=== PATIENT | female | born 1990 | race Caucasian/White ===

== ENCOUNTER 2020-02-21 01:10 | Outpatient (CLI) | payer OTHER ==
[2020-02-21 02:14] LABS: APPEARANCE,URINE SLIGHTLY-CLOUDY; BILIRUBIN,URINE NEGATIVE (NEGATIVE); COLOR,URINE YELLOW; GLUCOSE, URINE NEGATIVE (NEGATIVE); KETONES,URINE NEGATIVE (NEGATIVE); LEUKOCYTE ESTERASE,URINE SMALL (NEGATIVE); NITRITE,URINE NEGATIVE (NEGATIVE); PROTEIN,URINE NEGATIVE (NEGATIVE); URINE SPECIFIC GRAVITY 1.005; UROBILINOGEN,URINE NEGATIVE mg/dL (<2.0)
[2020-02-21 02:33] LABS: URINE AMPHETAMINES SCREEN NEGATIVE; URINE BARBITURATES SCREEN NEGATIVE; URINE BENZODIAZEPINES SCREEN NEGATIVE; URINE COCAINE SCREEN NEGATIVE; URINE MARIJUANA (THC) SCREEN NEGATIVE; URINE METHADONE SCREEN NEGATIVE; URINE PHENCYCLIDINE SCREEN NEGATIVE
[2020-02-21] MEDS ORDERED: HYDROXYZINE PAMOATE 50 MG CAPSULE ONE (03:27)
--- NOTE | 2020-02-21 03:40 | Non Stress Test Report ---
Non Stress Test Datetime Report Generated by CPN: 02/21/2020 03:39 DEMOGRAPHIC EGA NST: 38.3 INDICATION Indication for Study (NST) Other: lc > 32 weeks VITAL SIGNS Temperature - NST: 98.0 Pulse - NST: 77 RESP - NST: 17 NBPSYS NST: 108 NBPDIA NST: 62 MONITORING Monitor Explained: Monitor Explained; Test Explained; Patient Verbalized Understanding Time on Monitor: 02/21/2020 02:07 Time off Monitor: 02/21/2020 02:36 NST Duration: 29 NST INTERVENTIONS NST Interventions: PO Hydration; Reposition Patient Physician Notified NST: dr evi BABY A: [id number] BABY A Movement : Present Contraction Frequency : 2.5-4.5 FHR Baseline : 130 Accelerations : 15X15 Decelerations : None Variability : Moderate 6-25bpm NST Review: Meets Criteria for Reactive NST NST Review and Verified By : Tunde Santoyo RN NST Results: Reactive NST REPORT Report Trigger: Send Report
[2020-02-21] MEDS: HYDROXYZINE PAMOATE 50 MG CAPSULE PO ONE (03:55)
== END 2020-02-21 03:40 | disposition home or self-care (01) ==
LOC: LC 01:10
PROVIDERS: ATTEND Obstetrics & Gynecology
DX: O60.03 Preterm labor without delivery, third trimester (principal); Z3A.38 38 weeks gestation of pregnancy
CPT/HCPCS: 80307; 81005

== ENCOUNTER 2020-02-26 06:51 | Inpatient (IN) | payer OTHER ==
[2020-02-26] MEDS: RINGERS SOLUTION,LACTATED 1,000 ML IV PRN ×2 (07:40→11:20)
[2020-02-26 08:51] LABS: APPEARANCE,URINE SLIGHTLY-CLOUDY; BILIRUBIN,URINE NEGATIVE (NEGATIVE); COLOR,URINE YELLOW; GLUCOSE, URINE NEGATIVE (NEGATIVE); KETONES,URINE NEGATIVE (NEGATIVE); LEUKOCYTE ESTERASE,URINE TRACE (NEGATIVE); NITRITE,URINE NEGATIVE (NEGATIVE); PROTEIN,URINE NEGATIVE (NEGATIVE); URINE SPECIFIC GRAVITY 1.006; UROBILINOGEN,URINE NEGATIVE mg/dL (<2.0)
[2020-02-26 09:16] LABS: URINE AMPHETAMINES SCREEN NEGATIVE; URINE BARBITURATES SCREEN NEGATIVE; URINE BENZODIAZEPINES SCREEN NEGATIVE; URINE COCAINE SCREEN NEGATIVE; URINE MARIJUANA (THC) SCREEN NEGATIVE; URINE METHADONE SCREEN NEGATIVE; URINE PHENCYCLIDINE SCREEN NEGATIVE
[2020-02-26] MEDS ORDERED: PENICILLIN G-K 5 MILLION UNIT VIAL IV ONE (10:03)
[2020-02-26] MEDS ORDERED: PENICILLIN G-K 5 MILLION UNIT VIAL ONE (10:04)
[2020-02-26 10:27] LABS: ABSOLUTE EOSINOPHILS # (AUTO) 0.2 10^3/uL (0.0-0.6); ABSOLUTE LYMPHOCYTES (AUTO) 2.2 10^3/uL (0.5-4.7); ABSOLUTE MONOCYTES (AUTO) 0.7 10^3/uL (0.1-1.4); ABSOLUTE NEUT (AUTO) 10.2 10^3/uL (1.7-8.2); BASOPHILS % (AUTO) 0.4 % (0-2); EOSINOPHILS % (AUTO) 1.1 % (0-6); HEMATOCRIT 34.5 % (36.0-47.0); LYMPHOCYTES % (AUTO) 16.8 % (13-45); MEAN CORPUSCULAR HEMOGLOBIN 32.3 pg (27.0-33.4); MEAN CORPUSCULAR HGB CONC 34.9 g/dL (32.0-36.0); MEAN CORPUSCULAR VOLUME 93 fl (80-97); MONOCYTES % (AUTO) 5.4 % (3-13); PLATELET COUNT 242 10^3/uL (150-450); RED BLOOD COUNT 3.73 10^6/uL (3.72-5.28); RED CELL DISTRIBUTION WIDTH 13.1 % (11.5-14.0); SEGMENTED NEUTROPHILS % (AUTO) 76.3 % (42-78); TOTAL CELLS COUNTED % (AUTO) 100 %; WHITE BLOOD COUNT 13.3 10^3/uL (4.0-10.5)
--- NOTE | 2020-02-26 11:24 | Admission Physical ---
Datetime Report Generated by CPN: 02/26/2020 11:24 CURRENT ADMISSION Chief Complaint: Uterine Contractions Indication for Induction: Not Applicable Admit Impression : Term, Intrauterine ; Active Labor Admit Plan: Admit to Unit; Initiate Labor Protocol ALLERGIES Medication Allergies: Yes Medication Allergies: meperidine (02/26/2020) OBSTETRICAL HISTORY EDC: 03/03/2020 00:00 : 2 Para: 1 Livin Gestational Diabetes: Yes Rh Sensitization: No Incompetent Cervix: No ORIANA: No Infertility: No ART Treatment: No Uterine Anomaly: No IUGR: No Hx Previous C/S: No Macrosomia: No Hx Loss/Stillborn: No PIH: No Hx : No Placenta Previa/Abruption: No Depression/PP Depression: No PTL/PROM: No Post Hemorrhage: No Current Procedures: Ultrasound; NST Obstetrical History Comments: G1- 2007 , term G2- current SEE RECORDS Alcohol: No Marijuana : No Cocaine: No Other Illicit Drugs: No Cigarettes: Former Smoker. 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 Surgery: No Heart Disease: No Hosp/Surgery: Yes Autoimmune Disorder: No Anesthetic Complications: No Kidney Disease: Yes Abnormal Pap Smear: No Neuro/Epilepsy: No Psychiatric Disorders: No Other Medical Diseases: No Hepatitis/Liver Disease: No Significant Family History: No Varicosities/Phlebitis: No Trauma/Violence : No Thyroid Dysfunction: No Medical History Comments: GDM with current - diet controlled, UTI with , tubal anchor surgery 1995 INFECTIOUS HISTORY Gonorrhea: No Genital Herpes: No Chlamydia: No Tuberculosis: No Syphilis: No Hepatitis: No HIV/AIDS Exposure: No Rash or Viral Illness: No HPV: No PHYSICAL EXAM Vital Signs: Reviewed FETUS A EGA: 39.1 Monitoring: External US Presentation: Vertex Admit Comment: presents with contractions GDM, GBS pos, prophylaxis started does not plan for epidural anticipate INFORMED CONSENT Assignment: Robles Torres MD Signature: with User ID: Aileen : with User ID: Aileen
--- NOTE | 2020-02-26 11:34 | Admission Physical ---
Datetime Report Generated by CPN: 02/26/2020 11:33 CURRENT ADMISSION Chief Complaint: Uterine Contractions Indication for Induction: Not Applicable Admit Impression : Term, Intrauterine ; Active Labor Admit Plan: Admit to Unit; Initiate Labor Protocol ALLERGIES Medication Allergies: Yes Medication Allergies: meperidine (02/26/2020) Latex: No Latex Allergies (Annotations: Data stored by [facility] on behalf of user) OBSTETRICAL HISTORY EDC: 03/03/2020 00:00 : 2 Para: 1 Livin Gestational Diabetes: Yes Rh Sensitization: No Incompetent Cervix: No ORIANA: No Infertility: No ART Treatment: No Uterine Anomaly: No IUGR: No Hx Previous C/S: No Macrosomia: No Hx Loss/Stillborn: No PIH: No Hx : No Placenta Previa/Abruption: No Depression/PP Depression: No PTL/PROM: No Post Hemorrhage: No Current Procedures: Ultrasound; NST Obstetrical History Comments: G1- 2007 , term G2- current SEE RECORDS Alcohol: No Marijuana : No Cocaine: No Other Illicit Drugs: No Cigarettes: Former Smoker. 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 Surgery: No Heart Disease: No Hosp/Surgery: Yes Autoimmune Disorder: No Anesthetic Complications: No Kidney Disease: Yes Abnormal Pap Smear: No Neuro/Epilepsy: No Psychiatric Disorders: No Other Medical Diseases: No Hepatitis/Liver Disease: No Significant Family History: No Varicosities/Phlebitis: No Trauma/Violence : No Thyroid Dysfunction: No Medical History Comments: GDM with current - diet controlled, UTI with , tubal anchor surgery 1995 INFECTIOUS HISTORY Gonorrhea: No Genital Herpes: No Chlamydia: No Tuberculosis: No Syphilis: No Hepatitis: No HIV/AIDS Exposure: No Rash or Viral Illness: No HPV: No PHYSICAL EXAM General: Normal HEENT: Deferred Neurologic: Normal Thyroid: Deferred Heart: Normal Lungs: Normal Breast: Deferred Back: Deferred Abdomen: Normal Genitourinary Exam: Normal Extremities: Normal DTRs: Deferred Pelvic Type: Adequate Vital Signs: Reviewed VAGINAL EXAM Dilatation: 5 Effacement: 50 Station: -2 MEMBRANES Membranes: Bulging FETUS A EGA: 39.1 Monitoring: External US FHR- Baseline: 140 Variability: Moderate 6-25bpm Accelerations: 15X15 Decelerations: Variable Presentation: Vertex Admit Comment: presents with contractions GDM, GBS pos, prophylaxis started does not plan for epidural anticipate INFORMED CONSENT Assignment: Robles Torres MD Signature: with User ID: Aileen : with User ID: Aileen
[2020-02-26] MEDS ORDERED: OXYTOCIN 10 UNIT/ML VIAL ONE (13:52)
[2020-02-26] MEDS ORDERED: OXYTOCIN/0.9 % SODIUM CHLORIDE 0 UNIT/0 ML RTUINJ ONE (13:53)
[2020-02-26] MEDS ORDERED: LIDOCAINE 1% INJ-PF (10 MG/ML) 30 ML SDV ONE (13:53)
[2020-02-26] MEDS ORDERED: MISOPROSTOL 0.2 MG TABLET ONE (13:53)
[2020-02-26] MEDS ORDERED: PENICILLIN G POTASSIUM 2,500,000 UNIT in DEXTROSE 5%-WATER 50 ML IV SCH (14:15)
--- NOTE | 2020-02-26 17:57 | PDOC DISCHARGE SUMMARY ---
Impression - Admit/DC Date/PCP Admission Date/Primary Care Provider: 02/26/20 11:11 Discharge Date: 02/26/20 - Discharge Diagnosis (1) False labor after 37 weeks of gestation without delivery Is this a current diagnosis for this admission?: Yes - Additional Information Resuscitation Status: Full Code Discharge Diet: As Tolerated Discharge Activity: Activity As Tolerated Home Medications: Prenat 115/Iron Fum/Folic/Dss [ 19 Tablet] 1 tab PO DAILY 02/21/20 History of Present Illiness History of Present Illness: MADDI DAVIS is a 30 year old female Physical Exam - Physical Exam Vital Signs: Intake & Output 02/25/20 02/26/20 02/27/20 06:59 06:59 06:59 Intake Total 458 Balance 458 Weight 80.5 kg Results Laboratory Results: WBC 13.3 10^3/uL (4.0-10.5) H 02/26/20 09:57 RBC 3.73 10^6/uL (3.72-5.28) 02/26/20 09:57 Hgb 12.0 g/dL (12.0-15.5) 02/26/20 09:57 Hct 34.5 % (36.0-47.0) L 02/26/20 09:57 MCV 93 fl (80-97) 02/26/20 09:57 MCH 32.3 pg (27.0-33.4) 02/26/20 09:57 MCHC 34.9 g/dL (32.0-36.0) 02/26/20 09:57 RDW 13.1 % (11.5-14.0) 02/26/20 09:57 Plt Count 242 10^3/uL (150-450) 02/26/20 09:57 Lymph % (Auto) 16.8 % (13-45) 02/26/20 09:57 Scurry % (Auto) 5.4 % (3-13) 02/26/20 09:57 Eos % (Auto) 1.1 % (0-6) 02/26/20 09:57 Baso % (Auto) 0.4 % (0-2) 02/26/20 09:57 Absolute Neuts (auto) 10.2 10^3/uL (1.7-8.2) H 02/26/20 09:57 Absolute Lymphs (auto) 2.2 10^3/uL (0.5-4.7) 02/26/20 09:57 Absolute Monos (auto) 0.7 10^3/uL (0.1-1.4) 02/26/20 09:57 Absolute Eos (auto) 0.2 10^3/uL (0.0-0.6) 02/26/20 09:57 Absolute Basos (auto) 0.0 10^3/uL (0.0-0.2) 02/26/20 09:57 Seg Neutrophils % 76.3 % (42-78) 02/26/20 09:57 Urine Color YELLOW 02/26/20 07:00 Urine Appearance SLIGHTLY-CLOUDY 02/26/20 07:00 Urine pH 7.0 (5.0-9.0) 02/26/20 07:00 Ur Specific [place] 1.006 02/26/20 07:00 Urine Protein NEGATIVE mg/dL (NEGATIVE) 02/26/20 07:00 Urine Glucose (UA) NEGATIVE mg/dL (NEGATIVE) 02/26/20 07:00 Urine Ketones NEGATIVE mg/dL (NEGATIVE) 02/26/20 07:00 Urine Blood NEGATIVE (NEGATIVE) 02/26/20 07:00 Urine Nitrite NEGATIVE (NEGATIVE) 02/26/20 07:00 Urine Bilirubin NEGATIVE (NEGATIVE) 02/26/20 07:00 Urine Urobilinogen NEGATIVE mg/dL (<2.0) 02/26/20 07:00 Ur Leukocyte Esterase TRACE (NEGATIVE) H 02/26/20 07:00 Urine Ascorbic Acid NEGATIVE (NEGATIVE) 02/26/20 07:00 Urine Opiates Screen NEGATIVE 02/26/20 07:00 Urine Methadone Screen NEGATIVE 02/26/20 07:00 Ur Barbiturates Screen NEGATIVE 02/26/20 07:00 Ur Phencyclidine Scrn NEGATIVE 02/26/20 07:00 Ur Amphetamines Screen NEGATIVE 02/26/20 07:00 U Benzodiazepines Scrn NEGATIVE 02/26/20 07:00 Urine Cocaine Screen NEGATIVE 02/26/20 07:00 U Marijuana (THC) Screen NEGATIVE 02/26/20 07:00 Blood Type B POSITIVE 02/26/20 09:57 Antibody Screen NEGATIVE 02/26/20 09:57 Stroke Is this a Stroke Patient?: No Acute Heart Failure Is this a Heart Failure Patient?: No
[2020-02-26] MEDS ORDERED: MORPHINE SULFATE 10 MG/ML INJ IM ONE (18:04)
--- NOTE | 2020-02-26 18:08 | RADIOLOGY REPORT (SQ) ---
EXAM DESCRIPTION: U/S OB LIMITED IMAGES COMPLETED DATE/TIME: 02/26/2020 5:52 pm REASON FOR STUDY: presentation COMPARISON: None. TECHNIQUE: Limited transabdominal grayscale ultrasound for evaluation of specific requested obstetri chavez parameters. LIMITATIONS: None. FINDINGS: CERVICAL LENGTH: Not applicable. Greater than 20 weeks. Need transvaginal study if indicat ed. EDUARDO: 13.8 cm. FHR: 127 beats per minute. PRESENTATION: Cephalic. PLACENTA: Not assessed ANATOMY: Not assessed OTHER: No other significant findings. IMPRESSION: LIMITED OBSTETRICAL ULTRASOUND WITH MEASURED PARAMETERS DELINEATED ABOVE. Trimester of : Third trimester - 28 weeks to delivery. TECHNICAL DOCUMENTATION: JOB ID: [id number] 2010 [employer]- All Rights Reserved Reading location - IP/workstation name: [email or web address]
[2020-02-26] MEDS ORDERED: MORPHINE SULFATE 10 MG/ML INJ ONE (18:12)
== END 2020-02-26 18:32 | disposition home or self-care (01) | DRG 833 ==
LOC: LC 06:51 → LR 11:11
PROVIDERS: ADMIT Obstetrics & Gynecology Gynecology; ATTEND Obstetrics & Gynecology Gynecology
DX: O47.1 False labor at or after 37 completed weeks of gestation (principal); O24.410 Gestational diabetes mellitus in pregnancy, diet controlled; O99.820 Streptococcus B carrier state complicating pregnancy; Z3A.39 39 weeks gestation of pregnancy
CPT/HCPCS: 36415; 76815; 80307; 81005; 85025; 86592; 86850; 86900; 86901; J2270; J2540; J2590; J3490; J7060

== ENCOUNTER 2020-02-29 07:45 | Inpatient (IN) | payer OTHER ==
[2020-02-29 08:45] LABS: BILIRUBIN,URINE NEGATIVE (NEGATIVE); GLUCOSE, URINE NEGATIVE (NEGATIVE); KETONES,URINE NEGATIVE (NEGATIVE); LEUKOCYTE ESTERASE,URINE LARGE (NEGATIVE); NITRITE,URINE NEGATIVE (NEGATIVE); PROTEIN,URINE 100 mg/dL (NEGATIVE); URINE SPECIFIC GRAVITY 1.004
[2020-02-29 08:46] LABS: APPEARANCE,URINE TURBID; COLOR,URINE RED
[2020-02-29 08:47] LABS: URINE AMPHETAMINES SCREEN NEGATIVE; URINE BARBITURATES SCREEN NEGATIVE; URINE BENZODIAZEPINES SCREEN NEGATIVE; URINE COCAINE SCREEN NEGATIVE; URINE MARIJUANA (THC) SCREEN NEGATIVE; URINE METHADONE SCREEN NEGATIVE; URINE PHENCYCLIDINE SCREEN NEGATIVE
[2020-02-29] MEDS ORDERED: RINGERS SOLUTION,LACTATED 1,000 ML IV ONE (09:36)
[2020-02-29] MEDS ORDERED: RINGERS SOLUTION,LACTATED 1,000 ML IV PRN (09:36)
[2020-02-29] MEDS ORDERED: PENICILLIN G-K 5 MILLION UNIT VIAL ONE ×3 (09:42→17:50)
[2020-02-29] MEDS ORDERED: LIDOCAINE 1% INJ-PF (10 MG/ML) 30 ML SDV ONE (09:48)
[2020-02-29] MEDS ORDERED: MISOPROSTOL 0.2 MG TABLET ONE (09:48)
[2020-02-29] MEDS ORDERED: OXYTOCIN/0.9 % SODIUM CHLORIDE 30 UNIT/500 ML RTUINJ ONE (09:48)
[2020-02-29] MEDS ORDERED: OXYTOCIN 10 UNIT/ML VIAL ONE (09:48)
[2020-02-29] MEDS ORDERED: PENICILLIN G POTASSIUM 5,000,000 UNIT in DEXTROSE 5%-WATER 100 ML IV ONE (10:00)
[2020-02-29] MEDS ORDERED: PROMETHAZINE HCL INJ 25 MG/1 ML VIAL IV ONE (10:14)
[2020-02-29] MEDS ORDERED: NALBUPHINE HCL INJ 10 MG/1 ML AMPULE INJ ONE (10:14)
[2020-02-29] MEDS ORDERED: NALBUPHINE HCL INJ 10 MG/1 ML AMPULE ONE (10:14)
[2020-02-29] MEDS ORDERED: PROMETHAZINE HCL INJ 25 MG/1 ML VIAL ONE (10:14)
--- NOTE | 2020-02-29 10:21 | Admission Physical ---
Datetime Report Generated by CPN: 02/29/2020 10:20 CURRENT ADMISSION Chief Complaint: Uterine Contractions Indication for Induction: Not Applicable Admit Impression : Term, Intrauterine ; Active Labor Admit Plan: Admit to Unit ALLERGIES Medication Allergies: Yes Medication Allergies: meperidine (02/29/2020) Latex: No Latex Allergies (Annotations: Data stored by [facility] on behalf of user) OBSTETRICAL HISTORY EDC: 03/03/2020 00:00 : 2 Para: 1 Term: 1 : 0 SAB: 0 IAB: 0 Ectopic: 0 Livin Cesareans: 0 VBACs: 0 Multiple Births: 0 Gestational Diabetes: Yes Rh Sensitization: No Incompetent Cervix: No ORIANA: No Infertility: No ART Treatment: No Uterine Anomaly: No IUGR: No Hx Previous C/S: No Macrosomia: No Hx Loss/Stillborn: No PIH: No Hx : No Placenta Previa/Abruption: No Depression/PP Depression: No PTL/PROM: No Post Hemorrhage: No Current Procedures: Ultrasound; NST Obstetrical History Comments: G1- 2008 GDM, , term G2- current, GDM SEE RECORDS Alcohol: No Marijuana : No Cocaine: No Other Illicit Drugs: No Cigarettes: Former Smoker. [id number] MEDICAL HISTORY Diabetes: Yes Diabetes Type: Gestational Diabetes Blood Transfusion: No Pulmonary Disease (Asthma, TB): No Breast Disease: No Hypertension: No Parts Identifier Surgery: No Heart Disease: No Hosp/Surgery: Yes Autoimmune Disorder: No Anesthetic Complications: No Kidney Disease: Yes Abnormal Pap Smear: No Neuro/Epilepsy: No Psychiatric Disorders: No Other Medical Diseases: No Hepatitis/Liver Disease: No Significant Family History: No Varicosities/Phlebitis: No Trauma/Violence : No Thyroid Dysfunction: No Medical History Comments: GDM with current - diet controlled, UTI with , ureter anchor in childhood due to reflux, wisdom teeth extraction INFECTIOUS HISTORY Gonorrhea: No Genital Herpes: No Chlamydia: No Tuberculosis: No Syphilis: No Hepatitis: No HIV/AIDS Exposure: No Rash or Viral Illness: No HPV: No PHYSICAL EXAM General: Normal HEENT: Normal Neurologic: Normal Thyroid: Normal Heart: Normal Lungs: Normal Breast: Normal Back: Normal Abdomen: Normal Genitourinary Exam: Normal Extremities: Normal DTRs: Normal Pelvic Type: Adequate Vital Signs: Reviewed VAGINAL EXAM Dilatation: 5 Effacement: 50 Station: -2 MEMBRANES Membranes: Bulging FETUS A EGA: 39.4 Monitoring: External US FHR- Baseline: 140 Variability: Moderate 6-25bpm Accelerations: 15X15 Decelerations: None Presentation: Vertex Admit Comment: at 39.3 weeks, +GBS, Pt presents from home c/o some spotting after intercourse as well as contractions. After ambulation, pt changed her cervix to 6 cm. Plan to admit, start PCN prophylaxis for GBs+ status, pt may have an epidural if desires. Wants IV pain medication to start with. Attending MD is Dr Santizo today, agrees w/ plan of care PLANS FOR LABOR AND DELIVERY Labor and Delivery: None Pain Management: None Feeding Preference: Breast Benefit of Breast Feed Discussed: Yes INFORMED CONSENT Assignment: Matilde Santizo MD Signature: with User ID: [email or web address] : with User ID: Allison
[2020-02-29 10:32] LABS: ABSOLUTE BASOPHILS # (AUTO) 0.1 10^3/uL (0.0-0.2); ABSOLUTE EOSINOPHILS # (AUTO) 0.1 10^3/uL (0.0-0.6); ABSOLUTE LYMPHOCYTES (AUTO) 2.6 10^3/uL (0.5-4.7); ABSOLUTE MONOCYTES (AUTO) 1.1 10^3/uL (0.1-1.4); ABSOLUTE NEUT (AUTO) 15.1 10^3/uL (1.7-8.2); BASOPHILS % (AUTO) 0.3 % (0-2); EOSINOPHILS % (AUTO) 0.6 % (0-6); HEMATOCRIT 36.2 % (36.0-47.0); HEMOGLOBIN 12.8 g/dL (12.0-15.5); LYMPHOCYTES % (AUTO) 13.8 % (13-45); MEAN CORPUSCULAR HEMOGLOBIN 32.5 pg (27.0-33.4); MEAN CORPUSCULAR HGB CONC 35.3 g/dL (32.0-36.0); MEAN CORPUSCULAR VOLUME 92 fl (80-97); MONOCYTES % (AUTO) 5.6 % (3-13); PLATELET COUNT 246 10^3/uL (150-450); RED BLOOD COUNT 3.92 10^6/uL (3.72-5.28); RED CELL DISTRIBUTION WIDTH 13.4 % (11.5-14.0); SEGMENTED NEUTROPHILS % (AUTO) 79.7 % (42-78); TOTAL CELLS COUNTED % (AUTO) 100 %; WHITE BLOOD COUNT 18.9 10^3/uL (4.0-10.5)
[2020-02-29] MEDS: PENICILLIN G POTASSIUM 2,500,000 UNIT in DEXTROSE 5%-WATER 50 ML IV SCH ×2 (14:04→17:57)
--- NOTE | 2020-02-29 14:44 | L&D Progress Notes ---
PROGRESS NOTES Datetime Report Generated by CPN: 02/29/2020 14:44 PROGRESS NOTE Impression: Reassuring Heart Rate Procedures: Artificial ROM; Sterile Vag Exam Plan: Continue Present Management Vital Signs : Reviewed; Within Normal Limits Comment: PCN dose #2 infusing, pt doing well w/ contractions, attempting natural labor. Ve 7/90/-1, AROM w/ clear, blood tinged fluids. Position changes encouraged. Natural labor support. Continue w/ PCN prophylaxis until delivery. Dr Santizo updated on pts status. VAGINAL EXAM Dilatation: 5 Effacement: 50 Station: -2 LAST VAGINAL EXAM-NURSING Nursing Exam Dilitation: 7.0 Nursing Exam Effacement: 90 Nursing Exam Station: -1 Nursing Exam Contractions: unable to determine d/t pt up to restroom and reajustment of toco MEMBRANES Membranes: Ruptured Amniotic Fluid Color: Bloody FETUS A FHR - Baseline: 145 Monitoring: External US Variability: Moderate 6-25bpm Accelerations: 15X15 Decelerations: None : 39.1 Presentation: Vertex SIGNATURE SIGNATURE: [id number];14,[id number];13,[id number] Assignment: Matilde Santizo MD Signature: with User ID: Allison : with User ID: Allison
[2020-02-29] MEDS ORDERED: EPHEDRINE SULFATE INJ 50 MG/1 ML AMPULE ONE (15:51)
[2020-02-29] MEDS ORDERED: FENTANYL/BUPIVACAINE/NS/PF 300 MCG/150 ML RTUINJ EPI ONE (15:52)
[2020-02-29] MEDS ORDERED: ROPIVACAINE HCL 0.2% INJ/PF (2 MG/ML) 20 ML SDV ONE (15:52)
[2020-02-29] MEDS ORDERED: PROMETHAZINE HCL INJ 25 MG/1 ML VIAL IV PRN (19:17)
[2020-02-29] MEDS ORDERED: PROMETHAZINE HCL 25 MG SUPP.RECT PR PRN (19:17)
[2020-02-29] MEDS ORDERED: DIPH/PERTUSS(ACELL)/TETANUS VAC/PF 0.5 ML SYR (>=10YO) IM PRN (19:17)
[2020-02-29] MEDS ORDERED: ACETAMINOPHEN WITH CODEINE #3 TABLET PO PRN ×2 (19:17)
[2020-02-29] MEDS ORDERED: NA PHOS,M-B/NA PHOS,DI-BA (ADULT) 133 ML ENEMA PR PRN (19:17)
[2020-02-29] MEDS ORDERED: MEASLES,MUMPS&RUBELLA VACC/PF 0.5 ML VIAL SUBCUT PRN (19:17)
[2020-02-29] MEDS ORDERED: ZOLPIDEM TARTRATE 5 MG TABLET PO PRN (19:17)
[2020-02-29] MEDS ORDERED: DIPHENHYDRAMINE HCL 25 MG CAPSULE PO PRN (19:17)
[2020-02-29] MEDS ORDERED: PROMETHAZINE HCL 25 MG TABLET PO PRN (19:17)
[2020-02-29] MEDS ORDERED: BENZOCAINE/MENTHOL AEROSOL SPRAY 56 ML TOP PRN (19:17)
[2020-02-29] MEDS ORDERED: ACETAMINOPHEN 325 MG TABLET PO PRN (19:17)
[2020-02-29] MEDS ORDERED: GLYCERIN/WITCH HAZEL LEAF 1 EACH MED..WIPE TP PRN (19:17)
[2020-02-29] MEDS ORDERED: OXYTOCIN/0.9 % SODIUM CHLORIDE 30 UNIT/500 ML RTUINJ IV PRN (19:17)
[2020-02-29] MEDS ORDERED: MAGNESIUM HYDROXIDE SUSP 30 ML UDCUP PO PRN (19:17)
[2020-02-29] MEDS ORDERED: PSEUDOEPHEDRINE HCL 30 MG TABLET PO PRN (19:17)
[2020-02-29] MEDS ORDERED: ACETAMINOPHEN 650 MG SUPP.RECT PR PRN (19:17)
[2020-02-29] MEDS ORDERED: DIBUCAINE 1% OINTMENT 28 GM TP PRN (19:17)
--- NOTE | 2020-02-29 19:56 | Birth Certificate Data ---
Cert Data Datetime Report Generated by CPMarzena: 02/29/2020 19:56 CERTIFICATE DATA 47a. Care: No (02/21/2020 01:20:Jessie Mcleod RN) 47b. Date of First Visit: 11/10/2019 00:00 (02/21/2020 01:20:Jessie Mcleod RN) 47c. Date of Last Visit: 02/23/2020 00:00 (02/21/2020 01:20:Jessie Mcleod RN) 47d. Number of Visits: 10 (02/21/2020 01:20:Jessie Mcleod RN) 48a. Number of Prev Live Births: 1 (02/21/2020 01:20:Mindy Barillas RN) 48b. Now Livin (02/21/2020 01:20:Mindy Barillas RN) 48c. Live Births Now : 0 (02/21/2020 01:20:QS system process) 48d. Date of Last Live : 07/01/2007 00:00 (02/21/2020 01:20:Jessie Mcleod RN) 48e. Losses: 0 (02/21/2020 01:20:Jessie Mcleod RN) RISK FACTORS IN THIS 49a. Diabetes: Yes (02/21/2020 01:20:Mindy Barillas RN) Type of Diabetes: Gestational Diabetes (02/21/2020 01:20:Mindy Barillas RN) 49b. Hypertension: No (02/21/2020 01:20:Mindy Barillas RN) 49c. Previous Births: 0 (02/21/2020 01:20:Jessie Mcleod RN) 49d. Stillborns: No (02/21/2020 01:20:Mindy Barillas RN) 49d. IUGR: No (02/21/2020 01:20:Mindy Barillas RN) 49e. Infertility Treatment: No (02/21/2020 01:20:Mindy Barillas RN) 49f. Previous Cesareans: 0 (02/21/2020 01:20:Jessie Mcleod RN) Mother's Height 50b. Height Inches: 64 (02/29/2020 10:00:QS system process) Mother's Weight 51a. Pre- Weight (lbs): 161 (02/21/2020 01:20:Jessie Mcleod RN) 51b. Weight at Delivery (lbs): 178 (02/29/2020 10:00:QS system process) 52. Dt Last Normal Menses Began: 05/28/2019 00:00 (02/21/2020 01:20:Jessie Mcleod RN) Infections Present/Treated 53a. Gonorrhea: No (02/21/2020 01:20:Mindy Barillas RN) Results this Hospital Visit : Negative (02/21/2020 01:20:Jessie Mcleod RN) 53b. Syphilis: No (02/21/2020 01:20:Mindy Barillas RN) Results this Hospital Visit: NONREACTIVE (02/26/2020 09:57:QS system process) 53c. Chlamydia: No (02/21/2020 01:20:Mindy Barillas RN) Results this Hospital Visit: Negative (02/21/2020 01:20:Jessie Mcleod RN) 53d. Hepatitis B: No (02/21/2020 01:20:Mindy Barillas RN) Results this Hospital Visit: Negative (02/21/2020 01:20:Mindy Barillas RN) 53e. Hepatitis C: Negative (02/21/2020 01:20:Jessie Mcleod RN) 53h. Mother Tested for HBsAG: Yes (02/21/2020 01:20:Jessie Mcleod RN) 53i. Date Tested: 11/10/2019 00:00 (02/21/2020 01:20:Jessie Mcleod RN) 53j. Test Result: Negative (02/21/2020 01:20:Mindy Barillas RN) Obstetric Procedures 54a, b, c. Obstetric Procedures: Ultrasound; NST (02/21/2020 01:20:Mindy Barillas RN) Cigarette Smoking Cigarette Smoking: Former Smoker. [id number] (02/21/2020 01:20:Mindy Barillas RN) 55a. Packs: 2 (02/21/2020 01:20:Jessie Mcleod RN) 55b. Packs: 1 (02/21/2020 01:20:Jessie Mcleod RN) 55c. 2nd Trimester of Preg- Ci (02/21/2020 01:20:Mindy Barillas RN) 55c. Packs: 0 (02/21/2020 01:20:Mindy Barillas RN) 55d. 3rd Trimester of Preg- Ci (02/21/2020 01:20:Mindy Barillas RN) 55d. Packs: 0 (02/21/2020 01:20:Mindy Barillas RN) Onset of Labor 56a. PROM >12 Hrs: 4.60 (02/21/2020 01:20:QS system process) 56b. Precipitous Labor <3 Hrs: 82 (02/21/2020 01:20:QS system process) 56c. Prolonged Labor > 20 Hrs: 82 (02/21/2020 01:20:QS system process) 57a. Induction of Labor: N/A (02/21/2020 01:20:JEYSON Jennings) 57c. Non-Vertex Presentation A: Vertex (02/21/2020 01:20:JEYSON Jennings) 57d. Steroids - Lung Mat: None (02/21/2020 01:20:Jessie Mcleod RN) 57d. Steroids - Lung Mat: Not Applicable (02/21/2020 01:20:Jessie Mcleod RN) 57e. Antibiotics During Labor: 02/29/2020 18:00 (02/21/2020 01:20:Belen Lockhart RN) 57f. Mat [place] or Temp >100.4: 99.0 (02/21/2020 01:20:Belen Lockhart RN) 57g. Moderate/Heavy Meconium: Clear (02/29/2020 14:34:Cha Santa RN) 57h. Intolerance of Labor: N/A (02/21/2020 01:20:JEYSON Jennings) : N/A (02/21/2020 01:20:JEYSON Jennings) 57i. Epidural/Spinal Anesthesia: Epidural (02/21/2020 01:20:Cha Santa RN) Method of Delivery 58a. Forceps - Unsuccessful A: N/A (02/21/2020 01:20:JEYSON Jennings) 58b. Vacuum - Unsuccessful A: N/A (02/21/2020 01:20:JEYSON Jennings) 58c. Presentation at 58c. Presentation at - A : Vertex (02/21/2020 01:20:[facility]) 58c. Presentation at - A : N/A (02/21/2020 01:20:[facility]) 58c. Presentation at - A : Cephalic (02/29/2020 15:03:Cha Santa RN) Final Route and Method of Del 58d. Baby A Route/Delivery: Vaginal (02/21/2020 01:20:[facility]) 58e. Trial of Labor Attempted: No (02/21/2020 01:20:Jessie Mcleod RN) 58e. Trial of Labor Attempted A: N/A (02/21/2020 01:20:Jessie Mcleod RN) 58e. Trial of Labor Attempted B: N/A (02/21/2020 01:20:Jessie Mcleod RN) Maternal Morbidity 59b. 3rd or 4th Degree Lacs: None (02/21/2020 01:20:Annamaria Camp, RNC) 59b. 3rd or 4th Degree Lacs: bilateral labial supraficial not repaired (02/21/2020 01:20:Annamaria Camp, RNC) Birthweight Baby A: 3552 (02/21/2020 01:20:Belen Lockhart RN) 60a. Pounds : 7 (02/21/2020 01:20:QS system process) 60b. Ounces: 13 (02/21/2020 01:20:QS system process) 61. GA at Delivery Baby A: 39.4 (02/21/2020 01:20:Annamaria Camp, RNC) : Full Term- 39- 40.6 Weeks (02/21/2020 01:20:QS system process) 62a. 5 Minute Baby A: 9 (02/21/2020 01:20:QS system process)
--- NOTE | 2020-02-29 19:56 | Delivery Summary ---
Del Sum A-C Datetime Report Generated by CPN: 02/29/2020 19:56 DELIVERY PERSONNEL DELIVERY PERSONNEL: [id number] Delivery Doctor:: Matilde Santizo MD MAT LINKER:: Michael Spence MAT LINKER Labor and Delivery Nurse:: Cha Santa RN Apparel Patternmaker/CIVILIAN JAIL OFFICER: Emelyn Weir, ST MATERNAL INFORMATION Delivery Anesthesia: Epidural Medications After Delivery: Pitocin Bolus-Please Comment; Pitocin 30 Units in 500ml NS/D5W Delivery QBL: 100 Maternal Complications: None Provider Comments: Called to patients room as she was complete with urge to push. Station +3/ She pushed through 3 contractions and delivered over an intact perineum. VIable male infant. Nasal and oral suctioned. Crying vigorously. COrd clamping delayed 30 seconds. After cord clamped and cut, infant placed maternal chest. Both stable condition. LABOR SUMMARY EDC: 03/03/2020 00:00 No. Babies in Womb: 1 Attempted: No Labor Anesthesia: Epidural LABOR INFORMATION Reason for Induction: Not Applicable Onset of Labor: 02/26/2020 09:09 Complete Dilatation: 02/29/2020 19:01 Oxytocin: N/A Group B Beta Strep: positive Antibiotics # of Doses: 3 Antibiotics Time of Last Dose: 02/29/2020 18:00 Name of Antibiotic Given: Pcn Steroids Given: None Reason Steroids Not Administered: Not Applicable MEMBRANES Membranes Rupture Method: Artificial Rupture of Membranes: 02/29/2020 14:34 Length of Rupture (hr): 4.60 Amniotic Fluid Color: Clear Amniotic Fluid Amount: Small Amniotic Fluid Odor: Normal STAGES OF LABOR Stage 1 hr: 81 Stage 1 min: 52 Stage 2 hr: 0 Stage 2 min: 9 Stage 3 hr: 0 Stage 3 min: 3 Total Time in Labor hr: 82 Total Time in Labor min: 4 VAGINAL DELIVERY Episiotomy: None Laceration #1: None Laceration Extension #1: N/A Other Laceration: bilateral labial supraficial not repaired Laceration Repair: No Sponge Count Correct: Yes Sharps Count Correct: Yes CSECTION DELIVERY Primary Indication: N/A Secondary Indication: N/A CSection Incidence: N/A Labor: N/A Elective: N/A CSection Incision: N/A BABY A INFORMATION Infant Delivery Date/Time: 02/29/2020 19:10 Method of Delivery: Vaginal Nurse Controlled Delivery: No Born in Route : No : N/A Forceps: N/A Vacuum Extraction: N/A Shoulder Dystocia : No PRESENTATION/POSITION BABY A Presentation: Cephalic Cephalic Presentation: Vertex Vertex Position: Right Occipital Anterior Breech Presentation: N/A PLACENTA INFORMATION BABY A Placenta Delivery Time : 02/29/2020 19:13 Placenta Method of Delivery: Spontaneous Placenta Status: Delivered SCORES BABY A Heart Rate 1 min: >100 bpm Resp Effort 1 min: Good Cry Reflex Irritability 1 min: Cough or Sneeze or Pulls Away Muscle Tone 1 min: Active Motion Color 1 min: Blue/Pale Resuscitation Effort 1 min: Tactile Stimulation SCORE 1 MIN: 8 Heart Rate 5 min: >100 bpm Resp Effort 5 min: Good Cry Reflex Irritability 5 min: Cough or Sneeze or Pulls Away Muscle Tone 5 min: Active Motion Color 5 min: Body [place], Extremities Blue Resuscitation Effort 5 min: N/A SCORE 5 MIN: 9 Resuscitation Effort 10 min: N/A INFANT INFORMATION BABY A Gestational Age at Delivery: 39.4 Gestational Status: Full Term- 39- 40.6 Weeks Outcome : Liveborn Condition : Stable Infant Sex: Male IDENTIFICATION BABY A Infant Verification Date/Time: 02/29/2020 19:28 ID Band Number: [id number] Mother's Name Verified: Yes Infant RN Verifying : AFeuston, RN Additional Verifying Personnel: DGordon Santoyo, RN WEIGHT/LENGTH BABY A Birthweight (gm): 3552 Weight (lb): 7 Infant Weight (oz): 13 Length (in): 20.00 Length (cm): 50.80 CORD INFORMATION BABY A No. Cord Vessels: 3 Nuchal Cord : N/A Cord Blood Taken: Yes-For Storage (Mom's Blood type +) Infant Suction: Mouth; Nose ASSESSMENT BABY A Complications: None Physical Findings at Delivery: Within Normal Limits Respirations: Appears Normal Skin to Skin: Yes Skin to Skin Time (min): 30 Employment Recruiter/ALS Called : No Care By: M Horowitz RN Transferred To: Remains with Mother BABY B INFORMATION : N/A SIGNATURES Signature: with User ID: Javier : with User ID: Javier : I was personally available for consultation and serving as supervising physician for the MLP.
--- NOTE | 2020-02-29 19:57 | Delivery Summary ---
Del Sum A-C Datetime Report Generated by CPN: 02/29/2020 19:57 DELIVERY PERSONNEL DELIVERY PERSONNEL: [id number] Delivery Doctor:: Matilde Santizo MD DENTAL CERAMIST ASSISTANT:: Michael Spence DENTAL CERAMIST ASSISTANT Labor and Delivery Nurse:: Cha Santa RN Laborer Pipeline/RAILROAD SHOP INSPECTOR: Emelyn Weir, ST MATERNAL INFORMATION Delivery Anesthesia: Epidural Medications After Delivery: Pitocin Bolus-Please Comment; Pitocin 30 Units in 500ml NS/D5W Delivery QBL: 100 Maternal Complications: None Provider Comments: Called to patients room as she was complete with urge to push. Station +3/ She pushed through 3 contractions and delivered over an intact perineum. VIable male infant. Nasal and oral suctioned. Crying vigorously. COrd clamping delayed 30 seconds. After cord clamped and cut, infant placed maternal chest. Both stable condition. LABOR SUMMARY EDC: 03/03/2020 00:00 No. Babies in Womb: 1 Attempted: No Labor Anesthesia: Epidural LABOR INFORMATION Reason for Induction: Not Applicable Onset of Labor: 02/26/2020 09:09 Complete Dilatation: 02/29/2020 19:01 Oxytocin: N/A Group B Beta Strep: positive Antibiotics # of Doses: 3 Antibiotics Time of Last Dose: 02/29/2020 18:00 Name of Antibiotic Given: Pcn Steroids Given: None Reason Steroids Not Administered: Not Applicable MEMBRANES Membranes Rupture Method: Artificial Rupture of Membranes: 02/29/2020 14:34 Length of Rupture (hr): 4.60 Amniotic Fluid Color: Clear Amniotic Fluid Amount: Small Amniotic Fluid Odor: Normal STAGES OF LABOR Stage 1 hr: 81 Stage 1 min: 52 Stage 2 hr: 0 Stage 2 min: 9 Stage 3 hr: 0 Stage 3 min: 3 Total Time in Labor hr: 82 Total Time in Labor min: 4 VAGINAL DELIVERY Episiotomy: None Laceration #1: None Laceration Extension #1: N/A Other Laceration: bilateral labial supraficial not repaired Laceration Repair: No Sponge Count Correct: Yes Sharps Count Correct: Yes CSECTION DELIVERY Primary Indication: N/A Secondary Indication: N/A CSection Incidence: N/A Labor: N/A Elective: N/A CSection Incision: N/A BABY A INFORMATION Infant Delivery Date/Time: 02/29/2020 19:10 Method of Delivery: Vaginal Nurse Controlled Delivery: No Born in Route : No : N/A Forceps: N/A Vacuum Extraction: N/A Shoulder Dystocia : No PRESENTATION/POSITION BABY A Presentation: Cephalic Cephalic Presentation: Vertex Vertex Position: Right Occipital Anterior Breech Presentation: N/A PLACENTA INFORMATION BABY A Placenta Delivery Time : 02/29/2020 19:13 Placenta Method of Delivery: Spontaneous Placenta Status: Delivered SCORES BABY A Heart Rate 1 min: >100 bpm Resp Effort 1 min: Good Cry Reflex Irritability 1 min: Cough or Sneeze or Pulls Away Muscle Tone 1 min: Active Motion Color 1 min: Blue/Pale Resuscitation Effort 1 min: Tactile Stimulation SCORE 1 MIN: 8 Heart Rate 5 min: >100 bpm Resp Effort 5 min: Good Cry Reflex Irritability 5 min: Cough or Sneeze or Pulls Away Muscle Tone 5 min: Active Motion Color 5 min: Body [place], Extremities Blue Resuscitation Effort 5 min: N/A SCORE 5 MIN: 9 Resuscitation Effort 10 min: N/A INFANT INFORMATION BABY A Gestational Age at Delivery: 39.4 Gestational Status: Full Term- 39- 40.6 Weeks Outcome : Liveborn Condition : Stable Infant Sex: Male IDENTIFICATION BABY A Infant Verification Date/Time: 02/29/2020 19:28 ID Band Number: [id number] Mother's Name Verified: Yes Infant RN Verifying : AFeuston, RN Additional Verifying Personnel: DGordon Santoyo, RN WEIGHT/LENGTH BABY A Birthweight (gm): 3552 Weight (lb): 7 Infant Weight (oz): 13 Length (in): 20.00 Length (cm): 50.80 CORD INFORMATION BABY A No. Cord Vessels: 3 Nuchal Cord : N/A Cord Blood Taken: Yes-For Storage (Mom's Blood type +) Infant Suction: Mouth; Nose ASSESSMENT BABY A Complications: None Physical Findings at Delivery: Within Normal Limits Respirations: Appears Normal Skin to Skin: Yes Skin to Skin Time (min): 30 Group Art Supervisor/ALS Called : No Care By: M Horowitz RN Transferred To: Remains with Mother BABY B INFORMATION : N/A SIGNATURES Signature: with User ID: Javier : with User ID: [email or web address] : I was personally available for consultation and serving as supervising physician for the MLP.
[2020-02-29] MEDS ORDERED: IBUPROFEN 800 MG TABLET ONE (23:08)
[2020-02-29] MEDS ORDERED: FAMOTIDINE 20 MG TABLET ONE (23:08)
[2020-02-29] MEDS: IBUPROFEN 800 MG TABLET PO SCH (23:11)
[2020-02-29] MEDS: FAMOTIDINE 20 MG TABLET PO SCH (23:12)
[2020-03-01] MEDS ORDERED: IBUPROFEN 800 MG TABLET ONE (05:33)
[2020-03-01] MEDS: IBUPROFEN 800 MG TABLET PO SCH ×3 (06:10→22:09)
[2020-03-01 07:29] LABS: HEMATOCRIT 31.4 % (36.0-47.0); HEMOGLOBIN 11.1 g/dL (12.0-15.5); MEAN CORPUSCULAR HEMOGLOBIN 32.5 pg (27.0-33.4); MEAN CORPUSCULAR HGB CONC 35.5 g/dL (32.0-36.0); MEAN CORPUSCULAR VOLUME 92 fl (80-97); PLATELET COUNT 208 10^3/uL (150-450); RED BLOOD COUNT 3.43 10^6/uL (3.72-5.28); RED CELL DISTRIBUTION WIDTH 13.3 % (11.5-14.0); WHITE BLOOD COUNT 18.7 10^3/uL (4.0-10.5)
[2020-03-01] MEDS ORDERED: PRENATAL VITAMIN W DHA CAPSULE PO SCH (10:00)
[2020-03-01] MEDS: FAMOTIDINE 20 MG TABLET PO SCH ×2 (10:50→22:09)
[2020-03-01] MEDS: SENNOSIDES/DOCUSATE 8.6-50 MG 1 EACH TABLET PO SCH (10:51)
[2020-03-01] MEDS: FERROUS SULFATE 325 MG TABLET PO SCH ×2 (10:51→18:47)
[2020-03-01] MEDS: DOCUSATE SODIUM 100 MG CAPSULE PO SCH ×2 (10:52→18:47)
[2020-03-02] MEDS: IBUPROFEN 800 MG TABLET PO SCH (05:55)
[2020-03-02 08:37] VITALS: BP 123/62
[2020-03-02] MEDS: FAMOTIDINE 20 MG TABLET PO SCH (09:43)
[2020-03-02] MEDS: DOCUSATE SODIUM 100 MG CAPSULE PO SCH (09:43)
[2020-03-02] MEDS: SENNOSIDES/DOCUSATE 8.6-50 MG 1 EACH TABLET PO SCH (09:43)
[2020-03-02] MEDS: FERROUS SULFATE 325 MG TABLET PO SCH (09:44)
--- NOTE | 2020-03-02 11:27 | PDOC DISCHARGE SUMMARY ---
Impression - Admit/DC Date/PCP Admission Date/Primary Care Provider: 02/29/20 09:37 VINNIE ESCALANTE MD Discharge Date: 03/02/20 - Discharge Diagnosis (1) Vaginal delivery Is this a current diagnosis for this admission?: Yes (2) Active labor at term Is this a current diagnosis for this admission?: Yes (3) Group B Streptococcus carrier state affecting Is this a current diagnosis for this admission?: Yes - Additional Information Discharge Diet: Regular Discharge Activity: Balance Activity w/Rest, Pelvic Rest Referrals: VINNIE ESCALANTE MD [Primary Care Provider] - Prescriptions: Ibuprofen [Motrin 800 mg Tablet] 800 mg PO Q8HP PRN #60 tablet PRN Reason: Home Medications: Prenat 115/Iron Fum/Folic/Dss [ 19 Tablet] 1 tab PO DAILY 02/21/20 Ibuprofen [Motrin 800 mg Tablet] 800 mg PO Q8HP PRN #60 tablet 03/02/20 Hospital Course 59. Maternal Morbidity (serious complications experinced by the mother associated with labor and delivery: None of the above Results Laboratory Results: WBC 18.7 10^3/uL (4.0-10.5) H 03/01/20 07:04 RBC 3.43 10^6/uL (3.72-5.28) L 03/01/20 07:04 Hgb 11.1 g/dL (12.0-15.5) L 03/01/20 07:04 Hct 31.4 % (36.0-47.0) L 03/01/20 07:04 MCV 92 fl (80-97) 03/01/20 07:04 MCH 32.5 pg (27.0-33.4) 03/01/20 07:04 MCHC 35.5 g/dL (32.0-36.0) 03/01/20 07:04 RDW 13.3 % (11.5-14.0) 03/01/20 07:04 Plt Count 208 10^3/uL (150-450) 03/01/20 07:04 Lymph % (Auto) 13.8 % (13-45) 02/29/20 10:00 [place] % (Auto) 5.6 % (3-13) 02/29/20 10:00 Eos % (Auto) 0.6 % (0-6) 02/29/20 10:00 Baso % (Auto) 0.3 % (0-2) 02/29/20 10:00 Absolute Neuts (auto) 15.1 10^3/uL (1.7-8.2) H 02/29/20 10:00 Absolute Lymphs (auto) 2.6 10^3/uL (0.5-4.7) 02/29/20 10:00 Absolute Monos (auto) 1.1 10^3/uL (0.1-1.4) 02/29/20 10:00 Absolute Eos (auto) 0.1 10^3/uL (0.0-0.6) 02/29/20 10:00 Absolute Basos (auto) 0.1 10^3/uL (0.0-0.2) 02/29/20 10:00 Seg Neutrophils % 79.7 % (42-78) H 02/29/20 10:00 Urine Color RED 02/29/20 08:00 Urine Appearance TURBID 02/29/20 08:00 Urine pH 7.0 (5.0-9.0) 02/29/20 08:00 Ur Specific [place] 1.004 02/29/20 08:00 Urine Protein 100 mg/dL (NEGATIVE) H 02/29/20 08:00 Urine Glucose (UA) NEGATIVE mg/dL (NEGATIVE) 02/29/20 08:00 Urine Ketones NEGATIVE mg/dL (NEGATIVE) 02/29/20 08:00 Urine Blood LARGE (NEGATIVE) H 02/29/20 08:00 Urine Nitrite NEGATIVE (NEGATIVE) 02/29/20 08:00 Urine Bilirubin NEGATIVE (NEGATIVE) 02/29/20 08:00 Urine Urobilinogen 2.0 mg/dL (<2.0) H 02/29/20 08:00 Ur Leukocyte Esterase LARGE (NEGATIVE) H 02/29/20 08:00 Urine Ascorbic Acid NEGATIVE (NEGATIVE) 02/29/20 08:00 Urine Opiates Screen NEGATIVE 02/29/20 08:00 Urine Methadone Screen NEGATIVE 02/29/20 08:00 Ur Barbiturates Screen NEGATIVE 02/29/20 08:00 Ur Phencyclidine Scrn NEGATIVE 02/29/20 08:00 Ur Amphetamines Screen NEGATIVE 02/29/20 08:00 U Benzodiazepines Scrn NEGATIVE 02/29/20 08:00 Urine Cocaine Screen NEGATIVE 02/29/20 08:00 U Marijuana (THC) Screen NEGATIVE 02/29/20 08:00 RPR NONREACTIVE (NONREACTIVE) 02/29/20 10:00 Blood Type B POSITIVE 02/29/20 10:00 Antibody Screen NEGATIVE 02/29/20 10:00 Plan Plan of Treatment: follow up in 4 weeks at [facility] for post check
== END 2020-03-02 13:15 | disposition home or self-care (01) | DRG 807 ==
LOC: LC 07:45 → LR 09:37 → 2S 03-01 08:16
PROVIDERS: ADMIT Obstetrics & Gynecology; ATTEND Obstetrics & Gynecology
PROC: 10E0XZZ Delivery of Products of Conception, External Approach (ICD-10-PCS; principal; 2020-02-29)
PROC: 10907ZC Drainage of Amniotic Fluid, Therapeutic from Products of Conception, Via Natural or Artificial Opening (ICD-10-PCS; 2020-02-29)
DX: O24.420 Gestational diabetes mellitus in childbirth, diet controlled (principal); Z37.0 Single live birth; O70.0 First degree perineal laceration during delivery; O99.824 Streptococcus B carrier state complicating childbirth; Z88.6 Allergy status to analgesic agent; Z3A.39 39 weeks gestation of pregnancy; Z87.891 Personal history of nicotine dependence
CPT/HCPCS: 36415; 80307; 81005; 85025; 85027; 86592; 86850; 86900; 86901; 87086; 94760; J2300; J2540; J2550; J2590; J2795; J3010; J3490; J7060